=== PATIENT | male | born 1930 | race Caucasian/White ===

== ENCOUNTER 2017-04-07 12:59 | Emergency (ER) | payer OTHER ==
[~2017-04-07] VITALS: Ht 165.1 cm; Wt 87.9 kg
[~2017-04-07 12:59] MED LIST: BENZONATATE200 MG PO; CEFADROXIL500 MG PO; CIMETIDINE400 MG PO; DITROPAN XL10 MG PO; FLORASTOR250 MG PO; Flagyl PO; LISINOPRIL10 MG PO; MINIPRESS5 MG PO; PERCOCET 5/31 TABLET PO; PERI-COLACE TA1 EACH PO; PRAZOSIN HCL5 MG PO; PRINIVIL10 MG PO; Protonix PO; TAGAMET400 MG PO; TYLENOL REGULA325 MG PO; UROXATRAL10 MG PO; Vicodin,Norco 5/325 PO; XANAX0.5 MG PO; Xanax PO; ZOFRAN4 MG PO; Zestril,Prinivil PO; Zofran PO
[2017-04-07 14:43] LABS: MCH 31.2 PG (29.0-34.0); MCHC 33.3 G/DL (30.0-36.0); MCV 93.5 FL (86-99); MEAN PLAT.VOLUME 9.8 uM^3 (9.0-12.4); PLATELET COUNT 206 K/uL (156-360); RBC DIS.WIDTH-CV 12.9 % (11.8-14.6); RBC DIS.WIDTH-SD 44.1 % (39-53); RED BLOOD COUNT 3.85 M/uL (4.00-5.50)
[2017-04-07 14:47] LABS: WHITE BLOOD COUNT 6.5 K/uL (4.1-10.2)
[2017-04-07 14:52] LABS: CHLORIDE 103 mEq/L (99-109); POTASSIUM 4.2 mEq/L (3.7-5.4); SODIUM 139 mEq/L (136-147)
[2017-04-07 14:53] LABS: D-DIMER ELISA 0.67 mg/L FEU (< 0.57)
[2017-04-07 14:55] LABS: GLUCOSE 114 mg/dL (70-99)
[2017-04-07 14:56] LABS: ANION GAP 8 MEQ/L (2-14); TOTAL BILIRUBIN 0.3 mg/dL (0.0-1.0)
[2017-04-07 14:58] LABS: ALKALINE PHOSPHATASE 44 IU/L (3-129); GFR ESTIMATE (CALCULATED) > 59 mL/min/
[2017-04-07 14:59] LABS: UREA NITROGEN (BUN) 14 mg/dL (9-23)
[2017-04-07 15:05] LABS: TROP-I INTERPRETATION NEGATIVE; TROPONIN-I < 0.01 ng/mL (0.0-0.30)
[2017-04-07] MEDS ORDERED: PERCOCET 5/31 TABLET PO (17:29)
[2017-04-07 18:56] VITALS: BP 164/81
== END 2017-04-07 18:58 ==
LOC: EME 12:59
PROVIDERS: Emergency Medicine
DX: S20.212A Contusion of left front wall of thorax, initial encounter (principal); J90 Pleural effusion, not elsewhere classified; W10.9XXA Fall (on) (from) unspecified stairs and steps, initial encounter; I10 Essential (primary) hypertension; K21.9 Gastro-esophageal reflux disease without esophagitis; Z87.442 Personal history of urinary calculi; Z85.46 Personal history of malignant neoplasm of prostate
CPT/HCPCS: 71020; 71275; 80053; 84484; 85027; 85379; 99281; 99285

== ENCOUNTER 2017-08-31 13:04 | Emergency (ER) | payer OTHER ==
[~2017-08-31] VITALS: Ht 165.1 cm; Wt 85.5 kg
[2017-08-31 16:44] VITALS: BP 130/74
== END 2017-08-31 16:45 | disposition home or self-care (01) ==
LOC: EME 13:04
DX: R04.0 Epistaxis (principal); I10 Essential (primary) hypertension; Z85.46 Personal history of malignant neoplasm of prostate; F17.200 Nicotine dependence, unspecified, uncomplicated
CPT/HCPCS: 99281; 99284